=== PATIENT | female | born 1945 | race Caucasian/White ===

== ENCOUNTER 2016-11-07 17:06 | Emergency (ER) | payer MEDICARE, OTHER ==
--- NOTE | ~2016-11-07 | CT4 ---
[facility] A Service of [facility] / [facility] RADIOLOGY TEXT RESULTS PATIENT: KAVITHA RICHARDSON LOCATION: [facility] : 43 UNIT #: [id number] AGE: [address]: Doc Kam DO SEX: F ORDER DR: [id number] [facility] [address] [place], [place] [address] [id number] E MR#: [id number] Acc #: [id number] NAME: KAVITHA RICHARDSON : 1945 SEX: F STUDY DATE/TIME: 11/07/2016 23:58 UNIT: [facility] ROOM: STUDY DESCRIPTION: CT Abd and Pelv Wo Cont Attending Physician: Doc Kam D.O. Ordering Physician: Doc Kam D.O. Primary Care Physician: Brandon Flowers M.D. MEDICAL IMAGING REPORT This report is preliminary unless electronic signature is present EXAM CT abdomen and pelvis without contrast INDICATION Generalized abdominal pain, nausea, vomiting and diarrhea today. PROCEDURE Unenhanced CT of the abdomen and pelvis. This CT exam was performed with one or more of the following radiation dose reduction techniques: automatic exposure control, adjustment of mA and/or kV according to patient size, and iterative reconstruction. COMPARISON None FINDINGS ABDOMEN WITHOUT CONTRAST: The included lung bases are clear. Hepatic steatosis. The spleen, kidneys, adrenal glands, pancreas have an unremarkable unenhanced appearance. Previous cholecystectomy. There is a Lap-Band in place. No acute findings are seen associated with the band. Bowel loops are nondilated. Appendix is normal. PELVIS WITHOUT CONTRAST: No pelvic mass or fluid. No aggressive appearing bone lesion. IMPRESSION 1. No acute findings. 2. Hepatic steatosis. Normal appendix. Dictated by... Michael Sigala M.D. [facility] A Service of [facility] / [facility] RADIOLOGY TEXT RESULTS PATIENT: KAVITHA RICHARDSON LOCATION: [facility] : 43 UNIT #: [id number] AGE: [address]: Hottman,Doc M DO SEX: F ORDER DR: THIS IS AN ELECTRONICALLY VERIFIED REPORT Michael Sigala M.D. at 11/08/2016 10:12 PM Scott TD: 11/08/2016 09:19 JOB #: [id number] MEDICAL IMAGING REPORT Page 1 of 1 COPY
[~2016-11-07 17:06] MED LIST: ADVAIR 5001 DISK W/D PO; ADVAIR DISKU1 250/50 INH; ASPIRIN PO; AVAPRO PO; BACTROBAN22 GM TOP; CELEXA10 MG PO; CELEXA20 MG PO; CLEOCIN PO; COUMADIN PO; COUMADIN2.5 MG PO; COUMADIN5 MG PO; COZAAR100 MG PO; ESTROVEN MAX400 MCG PO; LEXAPRO PO; LOSARTAN-HCTZ1 EAC2 PO; METOPROLOL SUC100 MG PO; NAPROXEN PO; OMEPRAZOLE20 M1 PO; PREMARIN PO; PREVACID PO; SIMVASTATIN20 MG PO; SINGULAIR PO; TAZTIA PO; TOPROL XL PO; ZOCOR20 MG PO
[2016-11-07 18:03] LABS: BASOPHIL# 0.1 X10e3 (0-0.3); BASOPHIL% 0.4 % (0-2.5); EOSINOPHIL% 0.3 % (0.0-7.0); HEMATOCRIT 46.6 % (35.0-45.0); HEMOGLOBIN 15.2 gm/dL (12.0-16.0); LYMPHOCYTE# 1.4 X10e3 (1.0-3.5); LYMPHOCYTE% 11.2 % (17.0-45.0); MEAN CELL VOLUME 88.9 FL (83-96); MEAN CORPUSCULAR HEMOGLOBIN 29.1 PG (28-34); MEAN CORPUSCULAR HGB CONC 32.7 g/dL (30-36); MEAN PLATELET VOLUME 8.3 FL (6.5-11.5); MONOCYTE% 7.5 % (3.0-12.0); NEUTROPHIL# 10.3 X10e3 (1.5-7.1); NEUTROPHIL% 80.6 % (40-75); PLATELET COUNT 339 X10e3 (140-420); RED BLOOD COUNT 5.24 X10e (3.90-5.30); WHITE BLOOD COUNT 12.8 X10e3 (4.0-10.5)
[2016-11-07 18:08] LABS: DIFF IND NO
[2016-11-07 18:32] LABS: BILIRUBIN, DIRECT 0.2 mg/dL (0.0-0.2); BILIRUBIN,INDIRECT 0.8 mg/dL (0.0-0.9); CALCIUM SERUM 9.3 mg/dL (8.4-10.2); GLOM FILT RATE Estimated 56.3 mL/min (>60); POTASSIUM 4.4 mmol/L (3.5-5.1); PROTEIN TOTAL SERUM 8.3 g/dL (6.0-8.3)
[2016-11-07 21:16] LABS: INR 1.3; PROTHROMBIN TIME (PATIENT) 13.4 SECONDS (9.6-11.5)
[2016-11-08 02:14] LABS: URINE SOURCE CLEAN CATCH
[2016-11-08 02:18] LABS: URINE APPEARANCE CLEAR; URINE BILIRUBIN NEG (NEG); URINE BLOOD TRACE (NEG); URINE COLOR YELLOW; URINE GLUCOSE NEG (NEG); URINE KETONE TRACE (NEG); URINE LEUKOCYTE ESTERASE 2+ (NEG); URINE NITRATE NEG (NEG); URINE PROTEIN 1+ (NEG); URINE SPECIFIC GRAVITY 1.018 (1.003-1.035)
[2016-11-08 02:21] LABS: CULTURE INDICATED? YES; URBCS1 AUWI 0-2 /[HPF] (0-2); URINE BACTERIA AUWI NEG (NEGATIVE); URINE SQUAMOUS EPITHELIAL CELL NONE SEEN /[HPF]; UWBCS1 AUWI 25-50 (0-5)
[2016-12-04] MEDS ORDERED: COZAAR100 MG PO (16:21)
[2016-12-04] MEDS ORDERED: LOPRESSOR PO (16:21)
[2016-12-04] MEDS ORDERED: COUMADIN5 MG PO (16:22)
[2016-12-04] MEDS ORDERED: CELEXA20 MG PO (16:22)
[2016-12-13] MEDS ORDERED: COLESTID1 GM PO (09:28)
[2016-12-13] MEDS ORDERED: LOMOTIL 2.5-0.1 EACH (09:28)
== END 2016-11-08 05:32 | disposition home or self-care (01) ==
LOC: CED 17:06
PROVIDERS: Emergency Medicine
DX: N39.0 Urinary tract infection, site not specified (principal); I10 Essential (primary) hypertension; Z90.710 Acquired absence of both cervix and uterus; Z90.49 Acquired absence of other specified parts of digestive tract
CPT/HCPCS: 36415; 74176; 80048; 80076; 81003; 83690; 84484; 85025; 85610; 85730; 87086; 96361; 96374; 96375; 96376; 99284; J0696; J2270; J2405

== ENCOUNTER → 2016-12-13 | Day surgery (SDC) | payer MEDICARE, OTHER ==
[~2016-12-13] MED LIST changes: +COLESTID1 GM PO; +LOMOTIL 2.5-0.1 EACH; +LOPRESSOR PO
--- NOTE | ~2016-12-13 | OR ---
Unit #: [id number] #: [id number] Patient: KAVITHA RICHARDSON [id number] [address] [place], [place] [address] [id number] O MR#: [id number] NAME: KAVITHA RICHARDSON ROOM: Date of Procedure: 12/13/2016 Admission Date: 12/13/2016 Surgeon: Ras Long M.D. : 1945 Attending Physician: Ras Long M.D. Primary Care Physician: Brandon Flowers M.D. OPERATIVE REPORT PRIMARY CARE PHYSICIAN Brandon Flowers M.D. PREOPERATIVE DIAGNOSES The patient has presented with a history of watery nonbloody diarrhea without fecal incontinence. Most of the symptoms are present in the first half of the day and she does not get any nocturnal symptoms. The symptoms were also intermittent. PROCEDURES PERFORMED Colonoscopy and biopsies. POSTOPERATIVE DIAGNOSES 1. The patient had mild sigmoid and descending colon diverticulosis. Otherwise, examination was normal up to cecum and terminal ileum. 2. Multiple random colonic biopsies were obtained from throughout the colon to rule out microscopic or collagenous colitis. RECOMMENDATIONS 1. The patient will be started on Colestid 1 g p.o. b.i.d. She will skip a day in case of any constipation. 2. Lomotil 2.5 mg p.o. p.r.n. diarrhea, to be used only sparingly on an occasional basis when she is getting out of the house or eating out. 3. Follow up in the office in 3 months' time. SEDATION USED MAC. DESCRIPTION OF PROCEDURE Following detailed explanation of potential risks and complications of a colonoscopy, namely perforation, bleeding, and complications related to sedation, the patient was brought to GI lab and laid in the left lateral decubitus position. A digital rectal examination was performed, which was normal. Lubricated tip of the Olympus video colonoscope was inserted through the anus and advanced under direct vision. The scope was advanced past rectosigmoid into descending colon. Multiple medium-sized diverticula were seen in this area. The scope tip was then navigated all the way up to cecum with visualization of the ileocecal valve and the appendiceal orifice. Preparation was excellent with good visualization and photodocumentation was obtained. Last several inches of the terminal ileum were also visualized after intubation of the ileocecal valve and appeared normal. Successive segments of the colonic mucosa were examined Unit #: [id number] #: [id number] Patient: KAVITHA RICHARDSON upon withdrawal and appeared unremarkable except for presence of mild gastelum-diverticulosis. No polyps or colitis was seen. The patient did have small internal hemorrhoids at the anal verge as well. Multiple random colonic biopsies were obtained from throughout the colon to rule out microscopic or collagenous colitis. The scope was then withdrawn and the patient returned to the recovery area. She tolerated the procedure without any postprocedure complications. Dictated by... Nataliia Partida/renee TD: 12/13/2016 10:46 JOB #: [id number] OPERATIVE REPORT Page 1 of 1 X Ras Long MD X PROCEDURE OPERATIVE NOTE
== END | disposition home or self-care (01) ==
LOC: COPS 06:14
DX: K52.9 Noninfective gastroenteritis and colitis, unspecified (principal); K57.30 Diverticulosis of large intestine without perforation or abscess without bleeding; K64.8 Other hemorrhoids; I10 Essential (primary) hypertension; G47.30 Sleep apnea, unspecified; J45.909 Unspecified asthma, uncomplicated; I48.91 Unspecified atrial fibrillation; K21.9 Gastro-esophageal reflux disease without esophagitis; G89.29 Other chronic pain; M54.9 Dorsalgia, unspecified; Z87.442 Personal history of urinary calculi; Z79.01 Long term (current) use of anticoagulants; Z79.899 Other long term (current) drug therapy; Z90.710 Acquired absence of both cervix and uterus; Z90.49 Acquired absence of other specified parts of digestive tract; Z98.84 Bariatric surgery status; Z98.890 Other specified postprocedural states
CPT/HCPCS: 88305; J2250